=== PATIENT | male | born 1980 | race Caucasian/White ===

== ENCOUNTER 2018-06-14 17:17 | Emergency (ER) | payer SELFPAY ==
[~2018-06-14] VITALS: Ht 182.9 cm; Wt 72.7 kg
[2018-06-14 17:26] VITALS: Ht 182.9 cm; Wt 72.7 kg
[2018-06-14 18:00] LABS: BASOPHILS 0.3 % (0-2); EOSINOPHILS 1.4 % (0-7); HEMATOCRIT 45.9 % (42.0-54.0); IMMATURE GRANULOCYTES 0.3 % (0-5); LYMPHOCYTES 28.2 % (15-50); MCH 31.3 pg (26.0-34.0); MCHC 34.9 g/dL (31.0-37.0); MCV 89.6 fL (80.0-100.0); MEAN PLATELET VOLUME 9.9 fL (7.4-10.4); MONOCYTES 10.2 % (2-11); NEUTROPHILS 59.6 % (40-80); PLATELET COUNT 279 10x3/uL (130-400); RBC 5.12 10x6/uL (4.20-6.10); RDW 12.3 % (11.5-14.5); WBC 11.1 10x3/uL (4.8-10.8)
[2018-06-14 18:38] LABS: BILIRUBIN - TOTAL 0.66 mg/dL (0.2-1.3); CREATININE - SERUM 1.2 mg/dL (0.6-1.3); PROTEIN - SERUM 7.3 g/dL (6.4-8.2)
[2018-06-14] MEDS ORDERED: TORADOL10 MG PO (21:09)
[2018-06-14] MEDS ORDERED: ZOFRAN8 MG PO (21:09)
[2018-06-14 21:21] LABS: APPEARANCE CLEAR (CLEAR); BILIRUBIN NEGATIVE (NEGATIVE); COLOR YELLOW (YELLOW); GLUCOSE NEGATIVE (NEGATIVE); KETONE NEGATIVE (NEGATIVE); NITRITE NEGATIVE (NEGATIVE); PROTEIN TRACE mg/dL (NEGATIVE); UROBILINOGEN NORMAL (NORMAL)
[2018-06-14 21:23] LABS: BACTERIA FEW /hpf (NONE SEEN); RED CELLS - URINE 0-5 /hpf (0-5); WHITE CELLS - URINE RARE /hpf (0-5)
[2018-06-14 21:37] VITALS: BP 96/63
== END 2018-06-14 21:37 | disposition home or self-care (01) ==
LOC: D.ER 17:17
PROVIDERS: Emergency Medicine
DX: R10.31 Right lower quadrant pain (principal)